=== PATIENT | male | born 1965 | race Caucasian/White ===

== ENCOUNTER 2022-07-09 07:27 | Emergency (ER) | payer OTHER ==
[2022-07-09 08:25] LABS: BASOPHIL 0.5 % (0-2); EOSINOPHIL 1.6 % (0-5); HCT 42.9 % (42.0-52.0); HGB 14.4 g/dl (13.2-18.0); MCH 28.6 pg (25.0-31.0); MCHC 33.6 g/dL (32.0-36.0); MCV 85.1 fL (78.0-100.0); MONOCYTE 6.8 % (0-12); MPV 9.2 fL (6.0-9.5); NEUTROPHIL 70.8 % (41-80); NRBC 0; PLT 252 K/uL (150-400); RBC 5.04 M/uL (4.70-6.00); WBC 8.7 K/uL (4.0-10.5)
[2022-07-09 09:26] LABS: ALBUMIN 3.7 g/dL (3.4-5.0); BILIRUBIN - TOTAL 0.5 mg/dL (0.2-1.0); CREATININE 0.8 mg/dL (0.67-1.17); GLOBULIN (CALCULATION) 3.5 g/dL; TOTAL PROTEIN 7.2 g/dL (6.4-8.2)
[2022-07-09 09:33] LABS: BILIRUBIN NEGATIVE (NEGATIVE); BLOOD NEGATIVE Ery/uL (NEGATIVE); CLARITY CLEAR (CLEAR); COLOR YELLOW (YELLOW); GLUCOSE (U) NORMAL (NORMAL); LEUKOCYTES NEGATIVE Leu/uL (NEGATIVE); NITRITE NEGATIVE (NEGATIVE); PROTEIN NEGATIVE (NEGATIVE); UROBILINOGEN 0.2 mg/dL (0.2-1.0); pH 7.5 (5.0-9.0)
[2022-07-09] MEDS ORDERED: NORCO 5-325 TA1 EACH PO (10:24)
[2022-07-09] MEDS ORDERED: FLOMAX0.4 MG PO (10:24)
[2022-07-09] MEDS ORDERED: IBUPROFEN800 MG PO (10:24)
== END 2022-07-09 10:58 | disposition home or self-care (01) ==
LOC: FER 07:27
PROVIDERS: Emergency Medicine
DX: N13.2 Hydronephrosis with renal and ureteral calculous obstruction (principal); F17.290 Nicotine dependence, other tobacco product, uncomplicated
CPT/HCPCS: 36415; 80053; 81003; 83690; 85025; J1170; J1885; J2270; J2405; J7030